=== PATIENT | male | born 1970 | race Caucasian/White ===

== ENCOUNTER 2021-06-09 09:30 | Day surgery (SDC) | payer BC ==
--- NOTE | 2021-05-19 09:42 | HP ---
DATE OF SURGERY: 05/19/2021 HISTORY OF PRESENT ILLNESS: The patient is a 51-year-old last colonoscopy six years or so ago and had polyps. No bloody stools. No changes in bowel habits. No pain. Family history of father had from cancer not sure if it was colon or not. PAST MEDICAL HISTORY: Diabetes mellitus type I. Hypothyroidism. Sleep apnea. PAST SURGICAL HISTORY: Tonsillectomy. Lesion removed from his face in the past. Broken hip in the past. Cyst on right knee. MEDICATIONS: Glimepiride, Farxiga, levothyroxine. ALLERGIES: NKDA. FAMILY HISTORY: Father had from cancer not sure if it was colon or not. SOCIAL HISTORY: No alcohol abuse. REVIEW OF SYSTEMS: Fourteen systems reviewed per admission assessment. No chest pain or palpitations. Other systems negative or noncontributory as above and per preadmission questionnaire. PHYSICAL EXAMINATION: GENERAL: No acute distress. HEENT: Sclerae nonicteric. NECK: No JVD. CHEST: Equal excursion, nonlabored breathing. CVS: Regular rate and rhythm. ABDOMEN: Soft. No peritoneal signs. EXTREMITIES: No significant edema. Shoulder subcu mass or cyst. BACK: Ruptured back cyst. NEURO: Alert, oriented, moving extremities symmetrically. PSYCH: Appropriate mood and affect. IMPRESSION: He does have on his shoulder subcu mass or cyst. Ruptured back cyst that he would like taken care of first as it is causing increased pain and symptoms. He would like a follow up screening colonoscopy at a later date. He has increasingly symptomatic painful enlarging left upper arm, shoulder subcutaneous mass or cyst as well as ruptured back cyst. I feel he would benefit from excisional biopsy of both. Risks and benefits explained in detail including but not limited to bleeding or infection, risk of hematoma or seroma formation, risks of wound dehiscence or infection possibly requiring packing, risk of aches, pains, burning or numbness. Risk of anesthesia or sedation. Risk of deep venous thrombosis, pulmonary embolism, pneumonia as well as the possibility of what we excise once he heals the wound usually does not recur but he could get similar cysts, nodule or lipoma adjacent to or elsewhere on his body. He understands and agrees to the planned procedure. Will proceed with excisional biopsy of left upper arm/shoulder area subcutaneous mass as well as excisional biopsy of ruptured back cyst as an outpatient.
--- NOTE | 2021-06-09 09:20 | HP ---
DATE OF SURGERY: 06/09/2021 HISTORY OF PRESENT ILLNESS: The patient is a 51-year-old with subcutaneous mass left upper arm/shoulder area as well as a ruptured back cyst increasing in size, discomfort and swelling. He desires definitive excision. In addition, he needs follow up screening colonoscopy as last one was six years ago and had some polyps. Denied any bloody stools. Denied any change in bowel movements. Denied any pain. Family history father from colon cancer. PAST MEDICAL HISTORY: Diabetes, hypothyroidism, sleep apnea. PAST SURGICAL HISTORY: Tonsillectomy. Surgery upper extremity and back cyst in the past. MEDICATIONS: Glimepiride, levothyroxine. ALLERGIES: NKDA. FAMILY HISTORY: Father from colon cancer. SOCIAL HISTORY: No alcohol abuse. REVIEW OF SYSTEMS: Fourteen systems reviewed pertinent for as noted above. No chest pain or palpitations. Denies any blood thinner use. Other systems negative or noncontributory as above and per preadmission questionnaire. PHYSICAL EXAMINATION: GENERAL: No acute distress. HEENT: Sclerae nonicteric. NECK: No JVD. CHEST: Equal excursion, nonlabored breathing. CVS: Regular rate and rhythm. ABDOMEN: Soft. EXTREMITIES: Left upper extremity increasing in size subcutaneous mass unclear whether lipoma, cyst or other etiology. NEURO: Alert, oriented, moving extremities symmetrically. BACK: Ruptured back cyst. PSYCH: Appropriate mood and affect. IMPRESSION: Enlarging left upper arm subcutaneous mass shoulder area as well as ruptured back cyst as well. I feel he will benefit from excisional biopsy. Risks and benefits explained in detail including but not limited to bleeding or infection, risk of wound dehiscence possibly requiring packing, general risk of aches and pains, possibility he could get another subcutaneous mass or cyst at another site or adjacent to down the road, general risk of anesthesia, deep venous thrombosis, pulmonary embolism, pneumonia, risk of aches and pains. He understands and agrees to the planned procedure, will proceed with excisional biopsy left upper arm/shoulder area subcutaneous mass as well as excisional biopsy of ruptured back cyst as an outpatient and at a later date possibly undergoing screening colonoscopy.
[~2021-06-09 09:30] MED LIST: Lactated Ringers 1,000 ML IV ONE; Sensorcaine 0.25% 10 ML ONE
[2021-06-09] MEDS ORDERED: Lactated Ringers 1,000 ML IV ONE (09:53)
[2021-06-09] MEDS ORDERED: Lactated Ringers 1,000 ML IV SCH (10:00)
[2021-06-09] MEDS ORDERED: CEFAZOLIN 2 GM-D5W BAG** 2 GM/50 ML ML IV SCH (10:30)
[2021-06-09] MEDS ORDERED: CEFAZOLIN 2 GM-D5W BAG** 2 GM/50 ML ML IV ONE (10:33)
[2021-06-09] MEDS ORDERED: SUBLIMAZE 250 MCG/5 ML ONE (11:15)
[2021-06-09] MEDS ORDERED: BRIDION 200MG/2ML IV ONE (11:15)
[2021-06-09] MEDS ORDERED: TORAdol 30 mg Injection ONE (11:15)
[2021-06-09] MEDS ORDERED: DIPRIVAN 200 MG/20 ML IV ONE (11:15)
[2021-06-09] MEDS ORDERED: Zemuron 100 MG/10 ML ONE (11:15)
[2021-06-09] MEDS ORDERED: Decadron 4 MG INJ ONE (11:15)
[2021-06-09] MEDS ORDERED: Zofran 4 MG/2 ML VIAL ONE (11:15)
[2021-06-09] MEDS ORDERED: Xylocaine-Mpf 2% 5 Ml Vial ONE (11:15)
[2021-06-09] MEDS ORDERED: Zofran 4 MG/2 ML VIAL IV PRN (13:39)
--- NOTE | 2021-06-09 13:51 | OP ---
SURGERY DATE/TIME: 06/09/2021 1116 PREOPERATIVE DIAGNOSES: 1) Enlarging left arm subcutaneous mass or lipoma. 2) Ruptured back cyst. POSTOPERATIVE DIAGNOSES: 1) Enlarging left arm subcutaneous mass or lipoma. 2) Ruptured back cyst. PROCEDURES: 1) Excisional biopsy of lipoma left upper extremity/shoulder (approximately 5.5 cm) with intermediate closure. 2) Excisional biopsy of ruptured back cyst (approximately 2 cm with margins) with intermediate closure. SURGEON: Dr. Luiz Griffith. ANESTHESIA: General. ESTIMATED BLOOD LOSS: None. INDICATIONS: As noted above. Risks and benefits explained in detail and not limited to and consent obtained. The site had been confirmed and marked in the preoperative holding area. DESCRIPTION OF PROCEDURE AND FINDINGS: The patient is taken to the operating room. General anesthesia induced. With appropriate padding and positioning, prepped and draped in the usual sterile fashion. After official time out and no disagreement with planned procedure, longitudinal incision over the subcutaneous mass left upper extremity/upper arm. Incision carried down circumferentially around this lipomatous density to normal subcutaneous fat around the area. It was dissected over the fascia and carefully passed off for pathology. It appeared to be lipomatous in nature, path pending. Wound closed with interrupted 3-0 Vicryl. deep subcu down to the level of the fascia. Skin closed with 4-0 Vicryl and interrupted 3-0 Prolene used to reinforce the area given the location. Steri-Strips and sterile dressing applied. 0.25% Marcaine local injected at the end. Attention is then turned to the ruptured back cyst site. Going out to normal appearing skin around this indurated area dissection carried down to normal appearing subcutaneous tissue beneath. It is carefully dissected off normal deep subcutaneous fat and passed off. It measured about 2 cm in size. It appeared to be clean enough to warrant closure. It is closed with interrupted 3-0 Vicryl in the deep superficial subcu. Skin closed with 4-0 Vicryl. Interrupted 3-0 Prolene used to reinforce the area. 0.25% Marcaine local injected around the area. Steri-Strips and sterile dressings applied. The patient tolerated the procedure well. There were no immediate complications.
[2021-06-09 14:17] VITALS: O2SAT 92
[2021-06-09 14:46] VITALS: BP 159/87; PULSE 77
== END 2021-06-09 14:50 | disposition home or self-care (01) ==
LOC: SDC 09:30
PROVIDERS: ATTEND Surgery
DX: D17.22 Benign lipomatous neoplasm of skin and subcutaneous tissue of left arm (principal); L72.0 Epidermal cyst; E11.9 Type 2 diabetes mellitus without complications
CPT/HCPCS: 82947; J0690; J1100; J1885; J2405; J2704; J3010

== ENCOUNTER 2023-10-11 10:16 | Day surgery (SDC) | payer BC ==
--- NOTE | 2023-10-11 08:21 | HP ---
HISTORY AND PHYSICAL HISTORY OF PRESENT ILLNESS: A 53-year-old with history of polyps. Last colonoscopy 5 to 10 years ago. No bloody stools. No change in bowel habits. Occasional abdominal aches. Family history, father had colon cancer. Some reflux disease. Mom of some sort of stomach bacteria. PAST MEDICAL HISTORY: Hypothyroidism. HOME MEDICATIONS: Multivitamin, levothyroxine for hypothyroidism. ALLERGIES: No known drug allergies. PAST SURGICAL HISTORY: Had tonsillectomy and adenoidectomy. Patient had knee scope in the past, bilateral. Had a cyst on the eye, left shoulder, and back in the past. Had hip surgery in the past. Had cardiac catheterization in the past. SOCIAL HISTORY: No smoking. No alcohol abuse. FAMILY HISTORY: Diabetes, heart disease, lung disease, and colon cancer in the family. REVIEW OF SYSTEMS: Twelve systems reviewed. No chest pain or palpitations. Other systems negative or noncontributory as above and per preadmission questionnaire. PHYSICAL EXAMINATION: GENERAL: Height 5 feet 11 inches. BMI 33.19. No acute distress. HEENT: Sclerae nonicteric. NECK: No JVD. CARDIOVASCULAR: Regular rate and rhythm. RESPIRATORY: Equal excursion, nonlabored breathing. ABDOMEN: Soft. SKIN: Dry. EXTREMITIES: No cyanosis or edema. NEUROLOGIC: Alert. PSYCHIATRIC: Appropriate mood and affect. RECTAL: Deferred until diagnostic exam. ASSESSMENT: History of polyps. Needs screening colonoscopy. He also has some reflux. Needs EGD to evaluate peptic ulcer disease, gastritis, esophagitis. Risks were explained in detail. Shown the risk sheet and explained the procedure in detail including but not limited to bleeding or infection, risk of bowel injury or perforation, risk of misdiagnosis or nondiagnosis, risk of incomplete exam possibly requiring barium enema or barium swallow or other studies or procedure or referrals, risk of bowel prep, risk of sedation but not limited to. He understands and agrees to planned procedure. We will proceed outpatient under MAC anesthesia EGD and colonoscopy. Otherwise, continue medications for hypothyroidism.
[2023-10-11] MEDS ORDERED: Lactated Ringers 1,000 ML IV ONE (10:33)
[2023-10-11] MEDS: Lactated Ringers 1,000 ML IV SCH (10:36)
[2023-10-11 10:52] VITALS: RESP 18
[2023-10-11] MEDS ORDERED: Versed 2 MG/2 ML Injection ONE (13:18)
[2023-10-11] MEDS ORDERED: DIPRIVAN 200 MG/20 ML IV ONE ×2 (13:18→13:40)
[2023-10-11 14:25] VITALS: PULSE 63; TEMP 98.1
[2023-10-11 14:42] VITALS: BP 139/86; O2SAT 99
--- NOTE | 2023-10-12 12:08 | OP ---
SURGERY DATE/TIME: 10/11/2023 1322 - [id number] PREOPERATIVE DIAGNOSES: 1) History of polyps, needs followup screening colonoscopy. 2) History of some reflux, needs upper endoscopy for evaluation. POSTOPERATIVE DIAGNOSES: 1) ASA class 2. 2) Mild gastritis. 3) Fairly normal-appearing esophagus. 4) Colon polyps. 5) Diverticulosis. 6) Internal and external hemorrhoids. 7) Fair bowel prep. 8) Withdrawal time was approximately 12 minutes. PROCEDURES: 1) Esophagogastroduodenoscopy with cold biopsy of antrum for Helicobacter pylori. 2) Colonoscopy to cecum with hot snare polypectomy of sigmoid colon polyps x2. 3) Hot biopsy polypectomy of the transverse colon polyp, sigmoid polyp, and 2 rectal polyps. Piecemeal polypectomy of 1 of the rectal polyps, hot biopsy in a piecemeal fashion. SURGEON: Rolf Griffith MD ANESTHESIA: MAC. ESTIMATED BLOOD LOSS: Minimal. INDICATIONS: Consent was obtained. DESCRIPTION OF PROCEDURE AND FINDINGS: This patient was taken to the endoscopy room. MAC anesthesia induced after official time-out for planned procedure. Bite block positioned. Videogastroscope passed down the esophagus through the patent pylorus to the junction of the third and fourth portion of duodenum. The duodenum was grossly unremarkable. Scope pulled back in the antrum, had some gastritis. Cold biopsy was taken to evaluate for H. pylori. Good hemostasis noted. On retroflexion, there was no evidence of any hiatal hernia. Scope was straightened. GE junction was 40 cm. Z-line was crisp. There was no evidence of any erosions and no signs of any significant reflux from mucosal changes. The esophageal mucosa looked fine. The scope was withdrawn. Patient tolerated the procedure well. Attention then turned to colonoscopy. Digital rectal exam revealed some internal hemorrhoids. Videocolonoscope was inserted and passed up through the tortuous sigmoid, descending, transverse, and ascending colon. With some external pressure, scope passed around the cecum. Appendiceal orifice and valve were well visualized. The prep overall was fair. There is a little bit of liquidy semisolid stool. This is a very limited exam for very small lesions. Scope was slowly withdrawn over the next 12 minutes, and a small polyp in the transverse colon was removed by hot biopsy polypectomy. Another one in the sigmoid colon was removed by hot biopsy polypectomy. There were 2 sigmoid colon polyps, a little bit bigger, about 3.5 mm, removed with hot snare polypectomy and vigorous cautery. Good hemostasis noted. There were 2 polyps in the rectum that were removed, 1 was removed with hot biopsy forceps and the other 1 was removed with hot biopsy piecemeal fashion. Early polyps versus hyperplastic lesion removed with hot biopsy piecemeal polypectomy. Scope was withdrawn. The patient tolerated the procedure well. Findings were discussed with family in the waiting area.
== END 2023-10-11 14:40 | disposition home or self-care (01) ==
LOC: SDC 10:16
PROVIDERS: ATTEND Surgery
DX: Z12.11 Encounter for screening for malignant neoplasm of colon (principal); Z09 Encounter for follow-up examination after completed treatment for conditions other than malignant neoplasm; Z86.010 Personal history of colon polyps; Z80.0 Family history of malignant neoplasm of digestive organs; Z83.3 Family history of diabetes mellitus; Z87.19 Personal history of other diseases of the digestive system; K29.70 Gastritis, unspecified, without bleeding; K63.5 Polyp of colon; K57.30 Diverticulosis of large intestine without perforation or abscess without bleeding; K64.4 Residual hemorrhoidal skin tags; K64.8 Other hemorrhoids
CPT/HCPCS: 82947; 93005; J2250; J2704

== ENCOUNTER 2023-11-15 08:29 | Day surgery (SDC) | payer BC ==
[2023-11-15] MEDS ORDERED: Lactated Ringers 1,000 ML IV ONE (08:45)
[2023-11-15 08:52] VITALS: RESP 18
[2023-11-15] MEDS: Lactated Ringers 1,000 ML IV SCH (09:08)
[2023-11-15] MEDS ORDERED: MEFOXIN 2 GM PREMIX** 2 GM/50 ML ML IV ONE (09:09)
[2023-11-15] MEDS: MEFOXIN 2 GM PREMIX** 2 GM/50 ML ML IV SCH (09:10)
[2023-11-15] MEDS ORDERED: Sensorcaine 0.25% 10 ML ONE (09:33)
--- NOTE | 2023-11-15 10:04 | HP ---
PROCEDURE DATE: 11/15/2023 HISTORY OF PRESENT ILLNESS: Had some right upper quadrant pain, some nausea at times. CT work-up for back issues showed gallstones. PAST MEDICAL HISTORY: Arthritis. CURRENT MEDICATIONS: Multi-vitamins and levothyroxine. ALLERGIES: NKDA. PAST SURGICAL HISTORY: Had T&A. Had knee scope bilateral in the past. Had cyst excision on knee in the past. Also, includes cyst excision shoulder, back. Has had right hip surgery. FAMILY HISTORY: Diabetes, heart disease, lung cancer, colon cancer. SOCIAL HISTORY: Non-smoker. No alcohol abuse. REVIEW OF SYSTEMS: 12 systems reviewed. No chest pain or palpitations. Other systems negative or noncontributory other than above and per preadmission questionnaire. PHYSICAL EXAMINATION: Height 5' 11", BMI 33.19. GENERAL: No acute distress. HEENT: Sclerae nonicteric. NECK: No JVD. CHEST: Equal excursion. Nonlabored breathing. CVS: Regular rate and rhythm. ABDOMEN: Soft. Mild tenderness in right upper quadrant. No peritoneal signs. EXTREMITIES: No cyanosis or edema. NEURO: Alert and oriented, moving extremities symmetrically. PSYCH: Appropriate mood and affect. SKIN: Dry. IMPRESSION: ACUTE EXACERBATION OF CHRONIC CHOLECYSTITIS, SYMPTOMATIC CHOLELITHIASIS. IN NEED OF CHOLECYSTECTOMY. Risks explained in detail, but not limited to, bleeding; infection; risk of trocar injury or hernia; risk of bile leak, bile duct injury, or retained stone or sludge possibly requiring endoscopic retrograde cholangiopancreatography or other procedures; general risk of anesthesia, deep vein thrombosis, pulmonary embolism, or pneumonia; perioperative risks of aches, pains, bloating, constipation and/or loose stools possibly chronic in nature; possible no improvement in symptoms possibly requiring other endoscopy or other studies or referrals. Otherwise will proceed with laparoscopic cholecystectomy, possible open as an outpatient. Otherwise continue medications for hypothyroidism.
[2023-11-15] MEDS ORDERED: Zofran 4 MG/2 ML VIAL ONE ×2 (10:44→12:14)
[2023-11-15] MEDS ORDERED: BRIDION 200MG/2ML IV ONE (10:44)
[2023-11-15] MEDS ORDERED: Decadron 4 MG INJ ONE (10:44)
[2023-11-15] MEDS ORDERED: ROCURONIUM BROMIDE IV ONE (10:44)
[2023-11-15] MEDS ORDERED: SUBLIMAZE 100 MCG/2 ML ONE ×3 (10:44→12:01)
[2023-11-15] MEDS ORDERED: Xylocaine-Mpf 2% 5 Ml Vial ONE (10:44)
[2023-11-15] MEDS ORDERED: TORAdol 30 mg Injection ONE (10:44)
[2023-11-15] MEDS ORDERED: DIPRIVAN 200 MG/20 ML IV ONE (10:44)
[2023-11-15] MEDS ORDERED: Ephedrine Sulfate 50 MG/ML ONE (11:15)
[2023-11-15] MEDS ORDERED: Hydromorphone 1 mg/ml Injection ONE (12:02)
[2023-11-15 13:27] VITALS: BP 137/76; PULSE 70; TEMP 97.3; O2SAT 94
--- NOTE | 2023-11-16 11:12 | OP ---
SURGERY DATE/TIME: 11/15/2023 [id number] PREOPERATIVE DIAGNOSIS: Exacerbation of chronic cholecystitis, symptomatic cholelithiasis. POSTOPERATIVE DIAGNOSIS: Exacerbation of chronic cholecystitis, symptomatic cholelithiasis. PROCEDURE: Laparoscopic cholecystectomy. SURGEON: Rolf Griffith MD ANESTHESIA: General. ESTIMATED BLOOD LOSS: Minimal. INDICATIONS: As noted above. Risks and benefits were explained in detail, but not limited to. Consent obtained. DESCRIPTION OF PROCEDURE AND FINDINGS: The patient was taken to the operating room. General anesthesia was induced. He was prepped and draped in usual sterile fashion after official time-out, no disagreement in planned procedure. A transverse incision was made at supraumbilical area. Fascia grasped and pulled upward. Veress needle inserted. Tested with saline. Pneumoperitoneum accomplished insufflating from an opening pressure of 0-15. A 5 mm bladeless port and camera inserted without difficulty followed by two 5 mm right upper quadrant ports and 11mm in the epigastric port. Gallbladder was grasped up over the edge of the liver. Had some chronic inflammatory reaction. Dissection carried posterolateral to anterior fashion. Had an anterior artery. This was carefully isolated, clipped x3 and divided. The gallbladder was then slowly, carefully dissected until a critical view was obtained anteriorly and posteriorly. The cyst duct coming directly off the gallbladder, carefully isolated, clipped x3 and divided in the usual fashion. Gallbladder slowly, carefully dissected free from its dense attachments to the liver bed staying directly along the gallbladder wall. Clipped additional oozing side branches off the cystic artery/cystic vein as necessary directly along the gallbladder wall. Just prior to releasing it from its final attachments to the edge of the liver, liver bed reinspected. Clips noted to be in place in the cystic duct/cystic artery stumps. No signs of any active bleeding or bile leakage. It was felt there was no benefit from drain placement. The gallbladder released from its final attachment at edge of the liver, placed in provided sac and pulled up and out the epigastric wound and passed off. This fascial defect closed with puncture closure device and #1 Vicryl. Copious amount of irrigation accomplished lateral to the liver and irrigated subhepatic space, irrigating clear. Liver bed reinspected. Clips noted to be in place in the cystic duct/cystic artery stumps. No signs of any active bleeding or bile leakage. It was felt there was no benefit from drain placement. The patient tolerated the procedure well. There were no immediate complications. Went out to look for family in the waiting area after this.
== END 2023-11-15 13:30 | disposition home or self-care (01) ==
LOC: SDC 08:29
PROVIDERS: ATTEND Surgery
DX: K80.10 Calculus of gallbladder with chronic cholecystitis without obstruction (principal); Z83.3 Family history of diabetes mellitus
CPT/HCPCS: 82947; 93005; J0694; J1100; J1170; J1885; J2405; J2704; J3010; L0625